=== PATIENT | male | born 1955 | race Caucasian/White ===

== ENCOUNTER 2017-04-09 05:21 | Day surgery (SDC) | payer OTHER ==
[~2017-04-09] VITALS: Ht 167.6 cm; Wt 72.6 kg
[2017-04-09] MEDS ORDERED: LACTATED RINGERS 1,000 ML IV SCH (06:40)
[2017-04-09] MEDS ORDERED: TRIAMCINOLONE ACETONIDE 40MG/ML 1ML VIAL ONE (07:10)
[2017-04-09] MEDS ORDERED: DEXAMETHASONE 4MG/ML 1ML VIAL ONE (07:10)
[2017-04-09] MEDS ORDERED: GENTAMICIN SULF 40MG/ML 2ML VIAL ONE (07:10)
[2017-04-09] MEDS ORDERED: BUPIVACAINE HCL/PF 0.5% (5MG/ML) 10ML ONE (07:11)
[2017-04-09] MEDS ORDERED: NORMAL SALINE 0.9% 10 ML SYR ONE (07:11)
[2017-04-09] MEDS ORDERED: BACITRACIN ZINC 15GM TUBE TOP ONE (07:11)
[2017-04-09] MEDS ORDERED: BACITRACIN 50,000 UNITS/VIAL ONE (07:12)
[2017-04-09] MEDS ORDERED: LIDOCAINE HCL 1% 20ML VIAL (Pyxis) INJ ONE ×2 (07:12→09:40)
[2017-04-09] MEDS ORDERED: MIDAZOLAM HCL 2 MG/2 ML VIAL ONE (07:17)
[2017-04-09] MEDS ORDERED: FENTANYL CITRATE/PF 50MCG/ML 2ML VIAL ONE (07:17)
[2017-04-09] MEDS ORDERED: HYDROMORPHONE HCL/PF 2MG/ML CPJ IV PRN (09:00)
[2017-04-09] MEDS ORDERED: ONDANSETRON HCL 4MG/2ML VIAL IV PRN (09:00)
[2017-04-09] MEDS ORDERED: FENTANYL CITRATE/PF 50MCG/ML 2ML VIAL IV PRN (09:00)
[2017-04-09] MEDS ORDERED: CEFAZOLIN SODIUM 1000MG/VIAL ONE (09:39)
[2017-04-09] MEDS ORDERED: PROPOFOL 200MG/20ML VIAL IV ONE (09:39)
== END 2017-04-09 11:45 | disposition home or self-care (01) ==
LOC: OR 05:21
PROVIDERS: ATTEND Podiatrist Foot & Ankle Surgery
DX: M21.611 Bunion of right foot (principal); M20.5X1 Other deformities of toe(s) (acquired), right foot
CPT/HCPCS: 28299; 28308; 73620; 88304; 88311; C1713; J0690; J1100; J1580; J2250; J3010; J3301; J3490; J7120; A4216; J2704